=== PATIENT | male | born 1960 | race Native Hawaiian/Other Pacific Islander ===

== ENCOUNTER 2022-03-10 10:25 | Emergency (ER) | payer OTHER ==
[~2022-03-10] VITALS: Ht 165.1 cm; Wt 117.9 kg
[2022-03-10 10:59] LABS: PLATELET COUNT 277 K/uL (142-355)
[2022-03-10 11:05] LABS: POTASSIUM 3.9 mmol/L (3.6-5.2)
[2022-03-10 11:09] LABS: PARTIAL THROMBOPLASTIN TIME 25.8 SECONDS (24.5-33.6)
[2022-03-10 14:00] VITALS: BP 129/81; TEMP 98
== END 2022-03-10 14:00 | disposition home or self-care (01) ==
LOC: ED 10:25
PROVIDERS: Hospitalist
DX: N20.0 Calculus of kidney (principal); M25.511 Pain in right shoulder
CPT/HCPCS: 36415; 80053; 83690; 84484; 85027; 85610; 85730; 93005; 96360; 96365; 96375; 96376; 99284; J0696; J1170; J1885; J2270; J2405; Q9963